=== PATIENT | female | born 1960 | race Caucasian/White ===

== ENCOUNTER 2016-12-20 08:20 | Emergency (ER) | payer MEDICARE, OTHER ==
[~2016-12-20 08:20] MED LIST: BENTYL20 MG PO; BUSPAR PO; CELEBREX PO; CIPRO PO; CRESTOR PO; CYMBALTA PO; DARVOCET-N 1001 TAB PO; DIOVAN; DIOVAN HCT 160-1 TAB PO; ENBREL50 MG/ML; FLEXERIL PO; FLEXERIL10 MG PO; FORTEO2.4 ML; FOSAMAX PO; HCTZ; LORTAB 5/500 TA1 TA1 PO; LORTAB 7.5-3251 EACH PO; METFORMIN PO; ORENCIA125 MG/1 M; OXAZEPAM PO; PHENERGAN25 M1 PO; PREVACID PO; PRILOSEC PO; PRILOSEC20 MG PO; PROTONIX; PYRIDIUM PO; SYNTHROID PO; TEMAZEPAM PO; ZANAFLEX PO; ZETIA PO
[2016-12-20 08:24] LABS: BASOPHIL# 0.1 X10e3 (0-0.3); BASOPHIL% 1.1 % (0-2.5); EOSINOPHIL# 0.8 X10e3 (0-0.7); EOSINOPHIL% 7.5 % (0.0-7.0); HEMATOCRIT 40.1 % (35.0-45.0); HEMOGLOBIN 13.2 gm/dL (12.0-16.0); LYMPHOCYTE# 2.3 X10e3 (1.0-3.5); LYMPHOCYTE% 20.3 % (17.0-45.0); MEAN CORPUSCULAR HEMOGLOBIN 27.6 PG (28-34); MEAN CORPUSCULAR HGB CONC 32.8 g/dL (30-36); MEAN PLATELET VOLUME 7.5 FL (6.5-11.5); MONOCYTE# 0.8 X10e3 (0-1.0); MONOCYTE% 6.9 % (3.0-12.0); NEUTROPHIL# 7.2 X10e3 (1.5-7.1); NEUTROPHIL% 64.2 % (40-75); PLATELET COUNT 337 X10e3 (140-420); RED BLOOD COUNT 4.78 X10e (3.90-5.30); RED CELL DISTRIBUTION WIDTH 12.8 % (11.0-15.5); WHITE BLOOD COUNT 11.2 X10e3 (4.0-10.5)
[2016-12-20 08:26] LABS: URINE APPEARANCE CLEAR; URINE BILIRUBIN NEG (NEG); URINE COLOR YELLOW; URINE GLUCOSE NEG (NORM); URINE KETONE NEG (NEG); URINE NITRATE NEG (NEG); URINE PROTEIN NEG (NEG); URINE SOURCE CLEAN CATCH; URINE SPECIFIC GRAVITY <=1.005 (1.003-1.035); URINE UROBILINOGEN 0.2 MG/DL (NORM)
[2016-12-20 08:29] LABS: DIFF IND NO
[2016-12-20 08:29] LABS: MICRO INDICATED? NO; URINE BLOOD NEG (NEG); URINE LEUKOCYTE ESTERASE NEG (NEG)
[2016-12-20 08:42] LABS: POC - CKMB 1.6 ng/mL (0.0-7.9); POC - TROPONIN <0.05 ng/mL (<=0.05)
[2016-12-20 08:43] LABS: ALBUMIN SERUM 4.5 g/dL (3.5-5.0); BILIRUBIN, DIRECT 0.1 mg/dL (0.0-0.2); BILIRUBIN,INDIRECT 0.2 mg/dL (0.0-0.9); BILIRUBIN,TOTAL 0.3 mg/dL (0.2-2.0); BUN/CREATININE RATIO 18.57; CALCIUM SERUM 9.8 mg/dL (8.4-10.2); CREATININE SERUM 0.7 mg/dL (0.6-1.4); GLOM FILT RATE Estimated 96.2 mL/min (>60); POTASSIUM 3.8 mmol/L (3.5-5.1); PROTEIN TOTAL SERUM 8.3 g/dL (6.0-8.3)
== END 2016-12-20 10:05 | disposition home or self-care (01) ==
LOC: SED 08:20
PROVIDERS: Emergency Medicine
DX: B34.9 Viral infection, unspecified (principal); Z98.890 Other specified postprocedural states; Z87.891 Personal history of nicotine dependence; Z79.899 Other long term (current) drug therapy
CPT/HCPCS: 36415; 80048; 80076; 81003; 82553; 82947; 83874; 84484; 85025; 93005; 99283; J2405

== ENCOUNTER 2017-02-04 16:26 | Emergency (ER) | payer MEDICARE, OTHER ==
--- NOTE | ~2017-02-04 | CR150 ---
[facility] A Service of [facility] RADIOLOGY TEXT RESULTS PATIENT: YAJAIRA CAMEJO LOCATION: SED : 58 UNIT #: [id number] AGE: [address]: Judi Nickerson APRN SEX: F ORDER DR: [id number] [place] [id number] E MR#: [id number] Acc #: [id number] NAME: YAJAIRA CAMEJO. : 1960 SEX: F STUDY DATE/TIME: 02/04/2017 17:38 UNIT: SED ROOM: STUDY DESCRIPTION: CR Hip Min 2 Views Lt Attending Physician: Judi Nickerson A.P.R.N. Ordering Physician: Judi Nickerson A.P.R.N. Primary Care Physician: Angelita Forrester A.P.R.N. MEDICAL IMAGING REPORT This report is preliminary unless electronic signature is present. EXAM Left hip, minimum 2 views. HISTORY Left hip pain since Friday. No known injury. COMMENT Frontal view of the pelvis and frog-leg view of left hip reviewed. COMPARISON 05/28/2013. FINDINGS There has been previous ORIF right hip unchanged. There is no acute fracture or dislocation left hip. There is considerable degenerative change lower lumbar spine partly seen and likely progressed from 2012. Probably also some arthritis in the sacroiliac joints. IMPRESSION 1. No acute fracture or dislocation left hip. 2. 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 Prior internal fixation right hip. Dictated by... Kathryn Montenegro M.D. THIS IS AN ELECTRONICALLY VERIFIED REPORT Kathryn Montenegro M.D. at 02/04/2017 9:33 PM JESU/last TD: 02/04/2017 19:34 [facility] A Service of [facility] RADIOLOGY TEXT RESULTS PATIENT: YAJAIRA CAMEJO LOCATION: SED : 58 UNIT #: [id number] AGE: [address]: Judi Nickerson APRN SEX: F ORDER DR: JOB #: [id number] MEDICAL IMAGING REPORT Page 1 of 1
[2017-02-04] MEDS ORDERED: PHENTERMINE (16:28)
== END 2017-02-04 18:40 | disposition home or self-care (01) ==
LOC: SED 16:26
DX: M54.32 Sciatica, left side (principal); I10 Essential (primary) hypertension; E07.9 Disorder of thyroid, unspecified; Z90.49 Acquired absence of other specified parts of digestive tract; Z98.890 Other specified postprocedural states; Z79.899 Other long term (current) drug therapy
CPT/HCPCS: 73502; 99283